=== PATIENT | female | born 1985 ===

== ENCOUNTER 2021-03-31 08:00 | Outpatient (CLI) | payer OTHER ==
[~2021-03-31 08:00] MED LIST: LAMICTAL100 MG PO; YAZ 28 TABLET1 TAB PO
== END 2021-03-31 08:30 | disposition home or self-care (01) ==
LOC: PPH VACUNA 08:00
PROVIDERS: ATTEND Emergency Medicine Pediatric Emergency Medicine
DX: Z23 Encounter for immunization (principal)